=== PATIENT | male | born 1940 | race Caucasian/White ===

== ENCOUNTER 2016-07-12 02:02 | Emergency (ER) | payer OTHER, MEDICARE ==
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
== END 2016-07-12 07:10 ==
LOC: ER 02:02
DX: R45.86 Emotional lability (principal); D49.6 Neoplasm of unspecified behavior of brain; I10 Essential (primary) hypertension; I25.10 Atherosclerotic heart disease of native coronary artery without angina pectoris; E78.5 Hyperlipidemia, unspecified